=== PATIENT | male | born 1990 | race Caucasian/White ===

== ENCOUNTER 2023-12-26 19:09 | Emergency (ER) | payer OTHER ==
[2023-12-26 19:26] VITALS: RESP 16; TEMP 97.9
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
[2023-12-26] MEDS: KETOROLAC 15 MG/ML 1 ML VIAL IM STA (21:14)
[2023-12-26] MEDS: HYDROcodone/APAP 5-325MG 1 EACH TAB PO STA (21:14)
[2023-12-26] MEDS: LIDOCAINE 4% PATCH TOPICAL STA (21:15)
--- NOTE | 2023-12-26 21:21 | XR ---
EXAMINATION TYPE: XR hand complete RT DATE OF EXAM: 12/26/2023 9:16 PM CLINICAL INDICATION:Male, 33 years old with history of pain; [facility] COMPARISON: None TECHNIQUE: Frontal, lateral and oblique views of the right hand were obtained. FINDINGS: Normal alignment of the visualized joints. No acute osseous pathology is identified. No e vidence of soft tissue swelling. IMPRESSION: No acute osseous pathology.
[2023-12-26] MEDS ORDERED: ACET/COD 300 MG/30 MG STARTER PACK 6 TAB BTL PO STA (21:34)
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
[2023-12-26 22:16] VITALS: BP 174/105; PULSE 80
== END 2023-12-26 22:07 | disposition home or self-care (01) ==
LOC: EC 19:09
DX: S16.1XXA Strain of muscle, fascia and tendon at neck level, initial encounter (principal); H53.8 Other visual disturbances; F12.90 Cannabis use, unspecified, uncomplicated; V89.2XXA Person injured in unspecified motor-vehicle accident, traffic, initial encounter; Y92.411 Interstate highway as the place of occurrence of the external cause
CPT/HCPCS: 73130; 72125; 70450; 99284; 96372; J1885